=== PATIENT | female | born 1980 | race Asian ===

== ENCOUNTER 2017-08-22 05:19 | Day surgery (SDC) | payer OTHER ==
[2017-08-20 13:02] VITALS: BMI 33.8
[2017-08-22] MEDS ORDERED: IBUPROFEN 800 MG/8 ML IJ IVPB PRN (09:16)
[2017-08-22] MEDS ORDERED: ACETAMINOPHEN 325 MG TABLET (FP) PO PRN (09:16)
--- NOTE | 2017-08-22 09:18 | HP ---
History & Physical Update - History History: No Change - Physical Physical: No Change - Assessment Assessment: No Change - Plan Plan: No Change (AUB 2/2 prolapsing cervical fibroid - for resection of fibroid)
[2017-08-22] MEDS ORDERED: LACTATED RINGERS SOLUTION 1,000 ML IV SCH (09:30)
[2017-08-22] MEDS ORDERED: VASOPRESSIN 20 UNITS/ML VIAL IV ONE (09:48)
[2017-08-22] MEDS ORDERED: PROPOFOL 20 ML ONE ×2 (10:32→10:35)
[2017-08-22] MEDS ORDERED: LIDOCAINE HCL/PF 2% SDV 5ML VIAL ONE (10:32)
[2017-08-22] MEDS ORDERED: SUCCINYLCHOLINE CHLORIDE 200 MG/10 ML VIAL ONE (10:42)
[2017-08-22] MEDS ORDERED: MIDAZOLAM HCL 2 MG/2 ML SINGLE DOSE VIAL ONE (10:45)
[2017-08-22] MEDS ORDERED: PROMETHAZINE HCL 25 MG/1 ML VIAL IVPUSH PRN (11:25)
[2017-08-22] MEDS ORDERED: oxyCODONE HCL 5 MG TABLET PO PRN (11:25)
[2017-08-22] MEDS ORDERED: ONDANSETRON 4 MG/2 ML VIAL IVPUSH PRN (11:25)
--- NOTE | 2017-08-22 11:46 | OP ---
Operative Note - Note: Operative Date: 08/22/17 Operation: hysteroscopic myomectomy, D&C Findings: 3cm prolapsing cervical fibroid Post-Operative Diagnosis: Same as Pre-op Surgeon: Cyndi Simon Anesthesiologist/CHURN TENDER: Mat Izaguirre Anesthesia: General Specimens Removed: cervical fibroid, endometrial currettings Estimated Blood Loss (mls): 20 Operative Report Dictated: Yes
[2017-08-22 12:23] VITALS: TEMP 97.8
--- NOTE | 2017-08-22 12:24 | OP ---
DATE OF OPERATION: 08/22/2017 PREOPERATIVE DIAGNOSIS: Prolapsing cervical fibroid and abnormal uterine bleeding. POSTOPERATIVE DIAGNOSIS: Prolapsing cervical fibroid and abnormal uterine bleeding. PROCEDURE: Hysteroscopic resection of fibroid. SURGEON: Cyndi Simon DO PROCESS SAFETY MANAGER: None. ANESTHESIA: General, by Dr. Mat Izaguirre MD SPECIMENS REMOVED: Included, prolapsing cervical fibroid and endometrial contents. ESTIMATED BLOOD LOSS: 20 mL. COMPLICATIONS: None. SPONGE, NEEDLE, AND INSTRUMENT COUNT: Reported to be correct. DISPOSITION: Stable to PACU. BRIEF HISTORY AND PROCEDURE: Patient is a 36-year-old female who had been seen in the office with complaints of abnormal uterine bleeding and upon speculum examination, was found to have a prolapsing cervical fibroid. Patient was counseled on her options, and she elected to undergo resection of the fibroid with a dilatation and curettage. The patient was admitted to [facility] on August 22, 2017. Consents were confirmed. The patient was taken back to the operating room and placed in the dorsal lithotomy position and given general anesthesia. She was prepped and draped in the usual sterile fashion, and a timeout was performed. The speculum was placed inside the vagina, and the cervical polyp was easily visualized. Ten mL of dilute vasopressin was injected into the circumference of the fibroid at this time. The cervix was then dilated to accommodate a operative hysteroscope which was advanced to the fundus. No intrauterine abnormalities were appreciated. The base of the fibroid was located and resected with the hysteroscope device until the fibroid was able to be grasped and removed easily through the cervical canal. Further inspection with the hysteroscope revealed a portion of the base to be remaining which was resected in its entirety with the hysteroscope at this time. A suction dilatation and curettage was then performed. All specimens were sent to Pathology for permanent evaluation. One final look with the hysteroscope revealed no evidence of uterine trauma or perforation. The hysteroscope was then removed. The tenaculum was removed from the cervix. No bleeding was appreciated. All sponges and instruments were counted, and the count was reported to be correct. The patient was then awoken from anesthesia and recovering in stable condition in PACU at the time of this dictation. CYNDI SIMON DO /[id number]
[2017-08-22 13:55] VITALS: BP 127/77; PULSE 80
--- NOTE | 2017-08-23 13:21 | PATH ---
Surgical Pathology Report Patient Name: MATTI ORANTES [facility]. Rec. #: [id number] /Age/Gender: 1980 (Age: 36) / F Account: [id number] Location: [facility] SURGICAL Taken: 08/22/2017 Received: 08/22/2017 Reported: 08/23/2017 Physicians: Cyndi Simon M.D. Specimen(s) Received A: UTERINE FIBROIDS B: UTERINE CONTENTS Clinical History Leiomyoma of cervix Final Diagnosis A. UTERUS, HYSTEROSCOPIC MYOMECTOMY: LEIOMYOMA, 18 GRAMS. B. ENDOMETRIUM, CURETTING: WEAKLY PROLIFERATIVE ENDOMETRIUM, MYOMETRIAL TISSUE, AND BENIGN SQUAMOUS EPITHELIUM. NO ENDOMETRIAL HYPERPLASIA OR CARCINOMA IDENTIFIED. Electronically Signed Kevin Villarreal M.D. Gross Description A. Received in formalin labeled "fibroid," is an 18 g, 3.7 x 3.2 x 2.5 cm irene nodule. Sectioning reveals irene, rubbery parenchyma with whorled architecture. No areas of hemorrhage or necrosis are identified. Bed Laborer sections are submitted in 3 cassettes. B. Received in formalin labeled "uterine contents," is a 2.0 x 1.7 x 0.3 cm aggregate of irene soft tissue fragments. The formalin is filtered and the specimen is entirely submitted in one cassette. 08/22/201708/22/2017
== END 2017-08-22 13:56 | disposition home or self-care (01) ==
LOC: JASU-SURG 05:19
PROVIDERS: ATTEND Obstetrics & Gynecology
PROC: 0UB98ZZ Excision of Uterus, Via Natural or Artificial Opening Endoscopic (ICD-10-PCS; principal; 2017-08-22 10:00)
DX: N93.9 Abnormal uterine and vaginal bleeding, unspecified (principal); D25.9 Leiomyoma of uterus, unspecified
CPT/HCPCS: 88305-TC; 88307-TC; 94760

== ENCOUNTER 2019-08-19 05:32 | Day surgery (SDC) | payer OTHER ==
[2019-08-17 15:33] VITALS: BMI 37.3
[2019-08-19] MEDS ORDERED: IBUPROFEN 800 MG/8 ML IJ IVPB PRN (10:12)
[2019-08-19] MEDS ORDERED: ACETAMINOPHEN 325 MG TABLET (FP) PO PRN (10:12)
[2019-08-19] MEDS ORDERED: LACTATED RINGERS SOLUTION 1,000 ML IV SCH (10:15)
--- NOTE | 2019-08-19 10:15 | HP ---
History & Physical Update - History History: No Change - Physical Physical: No Change - Assessment Assessment: No Change - Plan Plan: No Change (Agree with H&P from 07/23/19, plan for laparscopic right cystectomy, possible oophorectomy, possible salpingectomy and any other indicated procedures)
[2019-08-19] MEDS ORDERED: ROCURONIUM BROMIDE 50 MG/5 ML SYRINGE ONE ×2 (10:23→11:26)
[2019-08-19] MEDS ORDERED: PROPOFOL 20 ML ONE (10:23)
[2019-08-19] MEDS ORDERED: MIDAZOLAM HCL 2 MG/2 ML SINGLE DOSE VIAL ONE (10:23)
[2019-08-19] MEDS ORDERED: LIDOCAINE HCL/PF 2% SDV 5ML VIAL ONE (10:23)
[2019-08-19] MEDS ORDERED: BUPIVACAINE HCL/PF 0.5% (5 MG/ML) 30 ML VIAL IJ ONE ×3 (10:36→11:11)
[2019-08-19] MEDS ORDERED: NEOSTIGMINE METHYLSULFATE 0.5 MG/1 ML - 10 ML MDV ONE (10:48)
[2019-08-19] MEDS ORDERED: GLYCOPYRROLATE 0.2 MG/1 ML VIAL ONE (10:48)
[2019-08-19] MEDS ORDERED: DEXAMETHASONE SOD PHOSPHATE 4 MG/1 ML VIAL ONE (10:48)
[2019-08-19] MEDS ORDERED: ONDANSETRON 4 MG/2 ML VIAL ONE (10:48)
[2019-08-19] MEDS ORDERED: KETOROLAC TROMETHAMINE 30 MG/1 ML VIAL ONE (11:40)
--- NOTE | 2019-08-19 12:20 | OP ---
Operative Note - Note: Operative Date: 08/19/19 Pre-Operative Diagnosis: right ovarain cystectomy Operation: laparoscopic right salpingo-oophorectomy, cystoscopy Findings: large multiloculated right ovarian cyst/mass Surgeon: Cyndi Simon Etl Application Developer: Charlie Pugh Anesthesiologist/SPARERIBS TRIMMER: Millie Laguna Anesthesia: General Specimens Removed: right ovary, right fallopian tube Estimated Blood Loss (mls): 25 Operative Report Dictated: Yes
[2019-08-19] MEDS ORDERED: oxyCODONE HCL 5 MG TABLET PO PRN (12:25)
[2019-08-19] MEDS ORDERED: ONDANSETRON 4 MG/2 ML VIAL IVPUSH PRN (12:25)
--- NOTE | 2019-08-19 12:28 | SURG ---
Surgery Helicopter Officer Note Helicopter Officer: Charlie Pugh PA-C Date of Service: 08/19/19 Diagnosis: right ovarian cyst Procedure: laparoscopic right salpingo-oophorectomy, cystoscopy I was present for the entirety of the operative procedure. For further detail, please refer to operative report. Visit type - Case Type Case Type: Scheduled - Emergency Emergency Visit: No - New patient This patient is new to me today: Yes Date on this admission: 08/19/19 - Critical Care Critical Care patient: No
[2019-08-19] MEDS ORDERED: ACETAMINOPHEN 325 MG TABLET (FP) ONE (14:25)
[2019-08-19 16:11] VITALS: BP 118/64; PULSE 84; TEMP 97.6
--- NOTE | 2019-08-21 12:38 | PATH ---
Cytology Non-Gynecological Report Patient Name: MATTI ORANTES [facility]. Rec. #: [id number] /Age/Gender: 1980 (Age: 38) / F Account: [id number] Location: [facility] SURGICAL Taken: 08/19/2019 Received: 08/19/2019 Reported: 08/21/2019 Physicians: Cyndi Simon M.D. Specimen(s) Received PELVIC WASHINGS Clinical History Ovarian cyst Final Diagnosis PELVIC WASHINGS: SATISFACTORY FOR EVALUATION. NEGATIVE FOR MALIGNANCY. REACTIVE MESOTHELIAL CELLS, MACROPHAGES, AND FEW CHRONIC INFLAMMATORY CELLS PRESENT. Also see concurrent pathology report [id number]. Electronically Signed Angelica Gilbert M.D. Gross Description Approximately 35cc of bloody fluid received fresh. One cytospin and one cellblock prepared
--- NOTE | 2019-08-21 14:48 | PATH ---
Surgical Pathology Report Patient Name: MATTI ORANTES [facility]. Rec. #: [id number] /Age/Gender: 1980 (Age: 38) / F Account: [id number] Location: [facility] SURGICAL Taken: 08/19/2019 Received: 08/19/2019 Reported: 08/21/2019 Physicians: Cyndi Simon M.D. Specimen(s) Received RIGHT FALLOPIAN TUBE AND OVARY WITH CYST Clinical History Right adnexal cyst Final Diagnosis RIGHT FALLOPIAN TUBE AND OVARY, SALPINGO-OOPHORECTOMY: OVARY WITH ENDOMETRIOSIS AND CYSTIC FOLLICLES. PORTION OF FALLOPIAN TUBE WITH NO SIGNIFICANT PATHOLOGIC CHANGE. COMMENT: Immunohistochemical stain CD10 (block 8) performed at [place], [place] ([id number]) interpreted at [facility] highlights the stroma in the area of endometriosis. Positive and negative controls (internal if applicable) show appropriate results. Electronically Signed Angelica Gilbert M.D. Gross Description Received in formalin labeled "right fallopian tube and ovary," is a 5 cm in length fimbriated fallopian tube. The outer surface is irene-pink and smooth. Sectioning reveals an unremarkable lumen. Separately received within the same container is a 7.0 x 3.0 x 3.0 cm focally disrupted cystic ovary. The outer surface is irene-pink and smooth with no excrescences. Sectioning reveals multiloculated cystic architecture with cysts measuring up to 3.0 cm in greatest dimension. The largest cyst contains clear serous fluid. Some of the smaller cysts contain brown blood. No normal ovarian parenchyma is identified. Residential Monitor sections are submitted in 8 cassettes as follows: 1-fimbria; 2-cross sections of fallopian tube; 2-4-ruddfnkpwwawfq ovary. DL/08/19/2019 saudi/08/19/2019
--- NOTE | 2019-08-24 15:54 | OP ---
DATE OF OPERATION: 08/19/2019 PREOPERATIVE DIAGNOSIS: Pelvic pain, right ovarian cyst. POSTOPERATIVE DIAGNOSIS: Pelvic pain, right ovarian cyst. PROCEDURE: Laparoscopic right salpingo-oophorectomy. SURGEON: Cyndi Simon DO ANESTHESIA: General by Millie Laguna MD QUALITY ASSURANCE COORDINATOR: ALBERTO King COMPLICATIONS: None. ESTIMATED BLOOD LOSS: 25 mL. SPECIMENS REMOVED: Right fallopian tube, right ovary. Sponge, needle, and instrument count correct. DISPOSITION: Stable to PACU. BRIEF HISTORY: Patient is a 38-year-old female who was seen in the office with complaints of right pelvic pain. Upon ultrasound examination, was found to have a large, septated right ovarian cyst. CA-125 was noted to be 36. In the office, the patient was counseled on her options and elected to undergo a right laparoscopic ovarian cystectomy, possible oophorectomy, possible salpingo-oophorectomy. Consents for the procedure were signed in the office then reconfirmed upon admission on August 19, 2019. DESCRIPTION OF PROCEDURE: The patient was then taken back to the operating room, given general anesthesia, placed in the dorsal lithotomy position. Peña catheter was placed under sterile conditions, and a hard time-out was performed. A 5-mm skin incision was created in the umbilicus. The Veress needle was placed intra-abdominally. After the hanging drop test, CO2 gas was attached and the abdomen was insufflated. Then using the optical trocar, a 5-mm trocar was placed in the umbilicus under direct visualization. After confirmation of intra-abdominal placement, 2 bilateral 5-mm lower quadrant ports were placed, 1 in the left and 1 on the right. Inspection of the abdomen and pelvis revealed a normal left tube and ovary, normal uterus, and a very large, right, multiloculated, complex-appearing ovarian cyst, which was attached to the right pelvic sidewall, attached to the rectum, and attached to the uterus. The cyst was elevated and bluntly dissected off the uterus and the rectum with laparoscopic peanut devices. This was done without difficulty. After we were able to elevate the cyst from the pelvic sidewall, the right ureter was identified and noted to be peristalsing normally and traced down to its entrance into the cul-de-sac. The right IP ligament was identified, cauterized, and cut with the LigaSure device being well away from the right ureter. Next, right utero-ovarian ligament was identified, cauterized, clamped, and cut, and the ovarian cyst was detached from the uterus at this time. The right fallopian tube was also attached to the ovarian cyst, and it was further dissected off its attachment to the mesosalpinx and the uterus at this time. Copious suction and irrigation was completed. Pelvic washings were completed before the start of the procedure as well. At this time, the cyst was noted to be incidentally ruptured and appeared to be an endometrioma. The right lower quadrant port was extended to an 11-mm trocar under direct visualization, and an EndoCatch bag was placed into the pelvis, and the ovary and the fallopian tube were placed in the bag and removed from the right lower quadrant port under direct visualization. Again, copious irrigation of the pelvis revealed no abnormalities of the uterus, left fallopian tube, or left ovary. A small area of bleeding in the posterior portion of the uterus was noted. It was close to the rectum, so cauterization was avoided, and a piece of Surgicel was placed to achieve adequate hemostasis, which was adequate after placement. The right lower quadrant port, which had been extended, was then closed with the David-Javier device using 1 Vicryl suture under direct visualization. The left lower quadrant port was removed under direct visualization. The abdomen was desufflated. The skin was reapproximated using 4-0 Biosyn and skin glue. At this point, due to the proximity of the ureter on the right side, a cystoscopy was performed, and bilateral ureteral jets were noted during cystoscopy. All instruments were removed from the abdomen and vaginal area. Peña catheter was removed. Sponge, needle, instrument count was reported to be correct. The patient tolerated procedure well and is recovering in stable condition in PACU after the procedure. CYNDI SIMON DO /[id number]
== END 2019-08-19 16:20 | disposition home or self-care (01) ==
LOC: JASU-SURG 05:32
PROVIDERS: ATTEND Obstetrics & Gynecology
PROC: 0UB54ZZ Excision of Right Fallopian Tube, Percutaneous Endoscopic Approach (ICD-10-PCS; 2019-08-19)
PROC: 0UB04ZZ Excision of Right Ovary, Percutaneous Endoscopic Approach (ICD-10-PCS; principal; 2019-08-19 10:00)
DX: N83.201 Unspecified ovarian cyst, right side (principal); R10.2 Pelvic and perineal pain
CPT/HCPCS: 88108; 88305-TC; 94760

== ENCOUNTER 2025-04-15 20:41 | Emergency (ER) | payer OTHER ==
[2025-04-15 21:03] VITALS: BP 176/84; PULSE 84; RESP 16; TEMP 98.6; BMI 37.3
[2025-04-15] MEDS ORDERED: MAGNESIUM CITRATE 300 ML BOTTLE ONE (22:14)
[2025-04-15] MEDS: MAGNESIUM CITRATE 300 ML BOTTLE PO ONE (22:31)
== END 2025-04-15 22:32 | disposition home or self-care (01) ==
LOC: FER 20:41
DX: K59.00 Constipation, unspecified (principal); R10.13 Epigastric pain; R14.0 Abdominal distension (gaseous); R63.0 Anorexia
CPT/HCPCS: 74019-TC-FY; 99283-25